=== PATIENT | female | born 1960 | race Two or more races ===

== ENCOUNTER → 2022-05-15 | Day surgery (SDC) | payer OTHER ==
[~2022-05-15] MED LIST: CELEBREX200 MG PO; LIDOCAINE HCL 2% LOCAL INJ 5 ML SDV VIAL INJ ONE; NEURONTIN300 MG PO; ONDANSETRON HCL INJ 2MG/ML 2ML 2 MG/ML VIAL ONE; PANTOPRAZOLE SO40 MG PO; PROPOFOL IV EMULSION 10 MG/ML 20 ML VIAL ONE; TYLENOL325 MG PO; ZYRTEC10 MG
[2022-05-15 10:40] VITALS: BP 132/83
== END | disposition home or self-care (01) ==
LOC: OR 07:01
PROVIDERS: ATTEND Internal Medicine Gastroenterology
DX: D12.2 Benign neoplasm of ascending colon (principal); K44.9 Diaphragmatic hernia without obstruction or gangrene; K31.7 Polyp of stomach and duodenum; K29.70 Gastritis, unspecified, without bleeding; K64.8 Other hemorrhoids; K21.9 Gastro-esophageal reflux disease without esophagitis; Z79.899 Other long term (current) drug therapy; Z80.8 Family history of malignant neoplasm of other organs or systems; Z01.810 Encounter for preprocedural cardiovascular examination; Z88.5 Allergy status to narcotic agent; M19.90 Unspecified osteoarthritis, unspecified site
CPT/HCPCS: 43239; 45384; 93005; J2001; J2405; J2704; 45378